=== PATIENT | female | born 2000 | race Native Hawaiian/Other Pacific Islander ===

== ENCOUNTER 2021-12-04 16:39 | Outpatient (CLI) | payer BC, SELFPAY ==
[2021-12-04 23:44] LABS: Chlamydia DNA Amplified* NOT DETECTED (No Detected); GC DNA Amplified* NOT DETECTED (No Detected)
== END 2021-12-04 16:40 | disposition home or self-care (01) ==
PROVIDERS: PCP Physician Assistant Medical; Visit Provider Family Medicine
DX: N89.8 Other specified noninflammatory disorders of vagina (principal); B37.3 Candidiasis of vulva and vagina; Z09 Encounter for follow-up examination after completed treatment for conditions other than malignant neoplasm
CPT/HCPCS: 87491; 87591

== ENCOUNTER 2022-01-13 15:30 | Outpatient (CLI) | payer BC, SELFPAY ==
[2022-01-13 22:55] LABS: Chlamydia DNA Amplified* NOT DETECTED (No Detected); GC DNA Amplified* NOT DETECTED (No Detected)
== END 2022-01-13 15:31 | disposition home or self-care (01) ==
LOC: LKVREF 15:30
PROVIDERS: PCP Physician Assistant Medical; Visit Provider Student in an Organized Health Care Education/Training Program
DX: N89.8 Other specified noninflammatory disorders of vagina (principal)
CPT/HCPCS: 87491; 87591

== ENCOUNTER 2022-02-14 11:17 | Outpatient (CLI) | payer BC, SELFPAY ==
[2022-02-14 15:59] LABS: Chlamydia DNA Amplified* NOT DETECTED (No Detected); GC DNA Amplified* NOT DETECTED (No Detected)
== END 2022-02-14 11:18 | disposition home or self-care (01) ==
LOC: LKVREF 11:17
PROVIDERS: PCP Physician Assistant Medical; Visit Provider Family Medicine
DX: N89.8 Other specified noninflammatory disorders of vagina (principal); Z11.3 Encounter for screening for infections with a predominantly sexual mode of transmission; Z20.2 Contact with and (suspected) exposure to infections with a predominantly sexual mode of transmission
CPT/HCPCS: 87491; 87591

== ENCOUNTER 2022-03-10 18:20 | Outpatient (CLI) | payer BC, SELFPAY ==
[2022-03-10 23:14] LABS: Chlamydia DNA Amplified* NOT DETECTED (No Detected); GC DNA Amplified* NOT DETECTED (No Detected)
== END 2022-03-10 18:21 | disposition home or self-care (01) ==
PROVIDERS: PCP Physician Assistant Medical; Visit Provider Registered Nurse
DX: Z11.3 Encounter for screening for infections with a predominantly sexual mode of transmission (principal); Z20.2 Contact with and (suspected) exposure to infections with a predominantly sexual mode of transmission
CPT/HCPCS: 87491; 87591

== ENCOUNTER 2022-05-12 16:53 | Outpatient (CLI) | payer BC, SELFPAY ==
[2022-05-12 23:28] LABS: Chlamydia DNA Amplified* NOT DETECTED (No Detected); GC DNA Amplified* NOT DETECTED (No Detected)
== END 2022-05-12 16:54 | disposition home or self-care (01) ==
LOC: LKVREF 16:53
PROVIDERS: PCP Physician Assistant Medical; Visit Provider Nurse Practitioner Family
DX: Z11.3 Encounter for screening for infections with a predominantly sexual mode of transmission (principal); Z20.2 Contact with and (suspected) exposure to infections with a predominantly sexual mode of transmission
CPT/HCPCS: 87491; 87591

== ENCOUNTER 2022-06-18 19:43 | Outpatient (CLI) | payer BC, SELFPAY ==
[2022-06-18 23:08] LABS: Chlamydia DNA Amplified* NOT DETECTED (No Detected); GC DNA Amplified* NOT DETECTED (No Detected)
== END 2022-06-18 19:44 | disposition home or self-care (01) ==
LOC: LKVREF 19:43
PROVIDERS: PCP Physician Assistant Medical; Visit Provider Registered Nurse
DX: N89.8 Other specified noninflammatory disorders of vagina (principal)
CPT/HCPCS: 87491; 87591

== ENCOUNTER 2022-07-10 12:43 | Outpatient (CLI) | payer BC, SELFPAY ==
[2022-07-10 22:01] LABS: Albumin* 4.5 g/dL (3.3-5.0)
[2022-07-10 22:02] LABS: Chloride* 105 mmol/L (96-114); Potassium* 4.7 mmol/L (3.6-5.1); Sodium* 139 mmol/L (135-149)
[2022-07-10 22:04] LABS: Bilirubin Total* 0.6 mg/dL (0.1-1.5); Carbon Dioxide* 27 mmol/L (20-32); Cholesterol* 154 mg/dL (90-199); Creatinine* 0.5 mg/dL (0.5-1.5); Estimated Glomerular Filt Rate 137 ml/min
[2022-07-10 22:05] LABS: Alanine Aminotransferase* 19 U/L (4-35); Alkaline Phosphatase* 55 U/L (40-150); Aspartate Amino Transferase* 23 U/L (12-35); Blood Urea Nitrogen* 7 mg/dL (5-24); Calcium* 9.4 mg/dL (8.4-10.6); Glucose* 93 mg/dL (60-115); HDL Cholesterol* 71 mg/dL (>=50); LDL Cholesterol Calculated 72 mg/dL (<100); Total Protein* 7.5 g/dL (6.0-8.3); Triglycerides* 55 mg/dL (40-149)
[2022-07-10 22:52] LABS: Hepatitis C Virus Antibody* Negative (Negative)
[2022-07-10 23:25] LABS: Chlamydia DNA Amplified* NOT DETECTED (No Detected); GC DNA Amplified* NOT DETECTED (No Detected)
[2022-07-12 09:58] LABS: Rapid Plasma Reagin (RPR) Non Reactive (Non Reactive)
== END 2022-07-10 12:44 | disposition home or self-care (01) ==
PROVIDERS: PCP Physician Assistant Medical; Visit Provider Family Medicine
DX: Z00.00 Encounter for general adult medical examination without abnormal findings (principal); Z11.59 Encounter for screening for other viral diseases; Z11.3 Encounter for screening for infections with a predominantly sexual mode of transmission; Z13.6 Encounter for screening for cardiovascular disorders
CPT/HCPCS: 80053; 80061; 86592; 86803; 87491; 87591

== ENCOUNTER 2022-07-29 18:35 | Outpatient (CLI) | payer BC, SELFPAY ==
[2022-07-29 22:29] LABS: GC DNA Amplified* NOT DETECTED (No Detected)
[2022-07-29 22:38] LABS: Chlamydia DNA Amplified* DETECTED (No Detected)
== END 2022-07-29 18:36 | disposition home or self-care (01) ==
LOC: LKVREF 18:35
PROVIDERS: PCP Physician Assistant Medical; Visit Provider Nurse Practitioner Family
DX: Z11.3 Encounter for screening for infections with a predominantly sexual mode of transmission (principal)
CPT/HCPCS: 87491; 87591

== ENCOUNTER 2022-08-27 17:32 | Outpatient (CLI) | payer BC, SELFPAY ==
[2022-08-27 23:02] LABS: Chlamydia DNA Amplified* NOT DETECTED (No Detected); GC DNA Amplified* NOT DETECTED (No Detected)
== END 2022-08-27 17:33 | disposition home or self-care (01) ==
LOC: LKVREF 17:32
PROVIDERS: PCP Physician Assistant Medical; Visit Provider Registered Nurse
DX: N89.8 Other specified noninflammatory disorders of vagina (principal)
CPT/HCPCS: 0353U; 87491; 87591

== ENCOUNTER 2022-12-15 13:16 | Outpatient (CLI) | payer BC, SELFPAY ==
[2022-12-15 21:43] LABS: Chlamydia DNA Amplified* NOT DETECTED (No Detected); GC DNA Amplified* NOT DETECTED (No Detected)
== END 2022-12-15 13:17 | disposition home or self-care (01) ==
PROVIDERS: PCP Physician Assistant Medical; Visit Provider Registered Nurse
DX: N89.8 Other specified noninflammatory disorders of vagina (principal); Z11.3 Encounter for screening for infections with a predominantly sexual mode of transmission; N92.6 Irregular menstruation, unspecified; Z72.51 High risk heterosexual behavior
CPT/HCPCS: 84443; 86592; 86703; 86803; 87340; 87491; 87591

== ENCOUNTER 2023-03-17 17:33 | Outpatient (CLI) | payer BC, SELFPAY | END 2023-03-17 17:34 | disposition home or self-care (01) | PROVIDERS: PCP Physician Assistant Medical; Visit Provider Family Medicine | DX: Z11.3 Encounter for screening for infections with a predominantly sexual mode of transmission (principal) | CPT/HCPCS: 86592; 86703; 87491; 87591 ==

== ENCOUNTER 2023-04-20 19:04 | Outpatient (CLI) | payer BC, SELFPAY | END 2023-04-20 19:05 | disposition home or self-care (01) | LOC: NFLDREF 19:04 | PROVIDERS: PCP Physician Assistant Medical; Visit Provider Registered Nurse | DX: N91.2 Amenorrhea, unspecified (principal) | CPT/HCPCS: 84702 ==

== ENCOUNTER 2023-04-29 15:06 | Outpatient (CLI) | payer BC, SELFPAY ==
[2023-04-29 23:00] LABS: Chlamydia DNA Amplified* NOT DETECTED (No Detected); GC DNA Amplified* NOT DETECTED (No Detected)
== END 2023-04-29 15:07 | disposition home or self-care (01) ==
LOC: LKVREF 15:06
PROVIDERS: PCP Physician Assistant Medical; Visit Provider Nurse Practitioner Family
DX: Z11.3 Encounter for screening for infections with a predominantly sexual mode of transmission (principal)
CPT/HCPCS: 87491; 87591

== ENCOUNTER 2023-05-18 08:48 | Outpatient (CLI) | payer BC, SELFPAY ==
--- NOTE | 2023-05-18 08:45 | CRLHL7_ITS ---
For Patients: As a result of the Century Cures Act, medical imaging exams and procedure reports are released immediately into your electronic medical record. You may view this report before your referring provider. If you have questions, please contact your health care provider. INDICATION: First trimester scan, establish dates. COMPARISON: None. TECHNIQUE: Real-time veloz-scale imaging of the pelvis was performed. FINDINGS: Intrauterine gestational sac, 1.8 cm, 6 weeks 5 days. pole with crown-rump length measuring 9 millimeters, 6 weeks 6 days. Yolk sac measures 4.9 millimeters. No ectopic. Ovaries normal. No subchorionic hemorrhage. No free fluid. IMPRESSION: Nonviable intrauterine pole. Dictated by Jose Vernon MD @ 05/18/2023 10:12:14 AM (Electronically Signed)
--- OUTSIDE RECORDS SUMMARY | 2023-05-18 08:53 | XMS_ITS | Patient Health Record ---
Author Name Unknown Organization [facility] Address [facility] [facility] [address] [facility] [address] [place] [address] Care Team Providers Care Security Professional Name Role Phone EVELIN, ROXANNACECELIA Primary Care Provider Allergies Allergen (clinical drug ingredient) Drug/Non Drug Allergy documented on EMR Reaction Allergy Type Onset Date Status doxycycline Doxycycline hives Drug Allergy Act german Penicillin rash Drug Allergy Active Results Component Value Reference Range Notes CHLAMYDIA/N. GONORRHOEAE RNA , TMA, UROGENITAL ([id number]) Reviewed date:06/04/2022 10:21:42 AM Interpretation: Performing Lab:[facility], [facility], [id number] Mitchell Goodwin Notes/Report: NON-FASTING CHLAMYDIA TRACHOMATIS RNA, TMA, UROGENITAL DETECTED NOT DETECTED If results do not correlate with clinical findings, testing using an alternate molecular target which amplifies different genetic sequences can be performed on the same sample for result confirmation within 7 days of sample receipt or per performing laboratory specimen retention policy. Alternate target testing is available; 18337 (C. trachomatis) [place] [address] (N. gonorrhoeae). NEISSERIA GONORRHOEAE RNA, TMA, UROGENITAL NOT DETECTED NOT DETECTED RPR (DX) W/REFL TITER AND CO NFIRMATORY TESTING ([id number]) Reviewed date:06/04/2022 10:21:42 AM Interpretation: Performing Lab:[facility], [id number] Mitchell Goodwin Notes/Report: NON-FASTING NON-FASTING NON-FASTING NON-FASTING RPR (DX) W/REFL TITER AND CONFIRMATORY TESTING NON-REACTIVE NON-REACTIVE NO COLLECTION DATE RECEIVED. WE HAVE USED THE DATE THE SPECIMEN WAS RECEIVED BY THIS LABORATORY THE COLLECTION DATE. IF THIS IS INCORRECT, PLEASE CONTACT CLIENT SERVICES. PHONE NUMBER: [phone] URINALYSIS, COMPLETE W/REFLE X TO CULTURE ([id number]) Reviewed date:06/04/2022 10:21:42 AM Interpretation: Performing Lab:[facility] [facility] [address], [place] TfcvBC[address] Mitchell Goodwin Notes/Report: NON-FASTING NON-FASTING NON-FASTING NON-FASTING NON-FASTING NON-FASTING NON-FASTING NON-FASTING COLOR YELLOW YELLOW APPEARANCE CLEAR CLEAR SPECIFIC GRAVITY 1.017 1.001-1.035 PH 7.0 5.0-8.0 GLUCOSE NEGATIVE NEGATIVE BILIRUBIN NEGATIVE NEGATIVE KETONES NEGATIVE NEGATIVE OCCULT BLOOD NEGATIVE NEGATIVE PROTEIN NEGATIVE NEGATIVE NITRITE NEGATIVE NEGATIVE LEUKOCYTE ESTERASE NEGATIVE NEGATIVE WBC NONE SEEN < OR = 5 /HPF RBC NONE SEEN < OR = 2 /HPF SQUAMOUS EPITHELIAL CELLS 6-10 < OR = 5 /HPF BACTERIA NONE SEEN NONE SEEN /HPF HYALINE CAST NONE SEEN NONE SEEN /LPF SURESWAB(R) ADVANCED VAGINIT IS, TMA ([id number]) Reviewed date:06/04/2022 10:21:42 AM Interpretation: Performing Lab:[facility], [place] Mitchell Goodwin Notes/Report: NON-FASTING NON-FASTING NON-FASTING NON-FASTING SURESWAB(R) ADV BACTERIAL VAGINOSIS (BV), TMA POSITIVE NEGATIVE LINA SPECIES NOT DETECTED NOT DETECTED LINA GLABRATA NOT DETECTED NOT DETECTED Lina species C. albicans, C. tropicalis, C. parapsilosis, and/or C. dubliniensis can be detected, but not differentiated, in the Lina spp. result. TRICHOMONAS VAGINALIS (TV), TMA NOT DETECTED NOT DETECTED HIV 1/2 ANTIGEN/ANTIBODY,FOU RTH GENERATION W/RFL ([id number]) Reviewed date:06/04/2022 10:21:42 AM Interpretation: Performing Lab:[facility] [address], [facility] CenterMcooWX[address] Mitchell Goodwin Notes/Report: NON-FASTING NON-FASTING NON-FASTING NON-FASTING HIV AG/AB, 4TH GEN NON-REACTIVE NON-REACTIVE HIV-1 antigen and HIV-1/HIV-2 antibodies were not detected. There is no laboratory evidence of HIV infection. PLEASE NOTE: This information has been disclosed to you from records whose confidentiality may be protected by state law. If your state requires such protection, then the state law prohibits you from making any further disclosure of the information without the specific written consent of the person to whom it pertains, or as otherwise permitted by law. A general authorization for the release of medical or other information is NOT sufficient for this purpose. For additional information please refer to http://education.G-cluster.[employer]/faq/CDG332 (This link is being provided for informational/ educational purposes only.) The performance of this assay has not been clinically validated in patients less than 2 years old. Reason For Referral No Information Medications Medication SIG (Take, Route, Frequency, Duration) Notes Start Date End Date Status QUEtiapine Fumarate 25 MG TAKE 1 TABLET (25 MG) BY MOUTH AT BEDTIME NEEDED FOR OTHER (SLEEP). Oral for 90 Days Active Doxycycline Hyclate 100 MG TAKE 1 CAPSUL E BY MOUTH TWICE A DAY X7DAYS Oral for 7 Days Not-Taking Fluconazole 150 MG TAKE 150 MG ORALLY EVERY 3 DAYS FOR 2 DOSES Oral for 3 Days Not-Taking Clindamycin Phosphate 2 % PLEASE SEE ATT ACHED FOR DETAILED DIRECTIONS Vaginal for 7 Days Not-Taking metroNIDAZOLE 500 MG TAKE 1 TABLET BY MOUTH TWICE A DAY FOR 7 DAYS Oral for 7 Days Not-Taking Azithromycin 250 MG TAKE 4 TABLETS BY MOUTH DAILY Oral for 1 Days Not-Taking Ibuprofen 600 MG TAKE 1 TABLET (600 MG) BY MOUTH EVERY 6 HOURS NEEDED. Oral for 7 Days Not-Taking Cyclobenzaprine HCl 10 MG TAKE 1 TABLET (10 MG) BY MOUTH THREE TIMES DAILY NEEDED. Oral for 10 Days Not-Taking Ciprofloxacin HCl 500 MG TAKE 1 TABLET B Y MOUTH TWICE A DAY Oral for 3 Days Not-Taking Social History Tobacco Use: Social History Observation Description Date Details (start date - stop date) Never Smoker NA - NA Household Question Answer Notes Marital status: single Number of adults in household: 2 Number of children in household: 0 Tobacco Use/Smoking Question Answer Notes Tobacco use: nonsmoker Alcohol Screen (Audit-C) Question Answer Notes Did you have a drink contain ing alcohol in the past year? Yes How often did you have a dri nk containing alcohol in the past year? Never (0 point) How many drinks did you have on a typical day when you were drinking in the past year? 1 or 2 drinks (0 point) How often did you have 6 or more drinks on one occasion in the past year? Never (0 point) Points 0 Interpretation Negative Sexual History Question Answer Notes Had sex in the past 12 months (vaginal, oral, or anal)? Yes with Both Men and Women Use protection? No Prevention strategies discussed: Other Have you ever had a Sexually transmitted disease ? Yes Chlamydia? Yes Syphilis? No Herpes? No Other? 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 confirmed Problem Vitamin D deficiency (34256516) Vitamin D deficiency (E55.9) Active confirmed Problem Vitamin D deficiency (68168083) Vitamin D insufficiency (E55.9) Active confirmed Problem Generalized anxiety disorder (49894546) FANNY (generalized anxiety disorder) (F41.1) Active confirmed Problem History of alcohol abuse (828115931) History of alcohol abuse (F10.11) Active confirmed Problem Suicidal ideation (8487027) Suicidal ideation (R45.851) Active confirmed Problem Abuse of antidepressant drug (573246049) Substance use disorder (F19.90) Active confirmed Problem Cannabis dependence (13906913) Cannabis use disorder, moderate, dependence (F12.20) Active confirmed Problem Alcohol abuse (73481908) Alcohol use disorder, mild, abuse (F10.10) Active confirmed Problem Ferritin level low (148965093) Low ferritin (R79.0) Active confirmed Problem Adjustment disorder (38331936) 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) Active confirmed Problem Parent-child problem (43335070) Parent-child relational problem (Z62.820) Active confirmed Problem Severe recurrent major depression without psychotic features (47703804) Major depressive disorder, recurrent, 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) Active confirmed Problem Recurrent major depression (74556111) Episode of recurrent major depressive disorder (F33.9) Active confirmed Problem Cannabis abuse (92568374) Cannabis use disorder, mild, abuse (F12.10) Active confirmed Problem Avoidant restrictive food intake disorder (disorder) (098796975) 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) Active confirmed Vital Signs Heart Rate 92 /min 06/01/2022 Temperature 99.5 degrees Fahrenheit 06/01/2022 Respiratory Rate 16 /min 06/01/2022 Height-cm 169.5 cm 06/01/2022 Oximetry 99 % 06/01/2022 Blood pressure diastolic 68 mm Hg 06/01/2022 Weight-kg 55.97 kg 06/01/2022 Height 66.73 in 06/01/2022 Blood pressure systolic 101 mm Hg 06/01/2022 Weight 123.4 lbs 06/01/2022 BMI 19.48 kg/m2 06/01/2022 Encounters Encounter Location Date Provider Diagnosis [facility] [address] [place] [address] 06/01/2022 [place] [facility] STI (sexually transmitted infection) A64 ; Vaginal candidiasis B37.31 ; Dysuria R30.0 ; Screening for HIV (human immunodeficiency virus) Z11.4 and Acute vaginitis N76.[address] [address] 06/04/2022 [place] [facility] Assessments Encounter Date Diagnosis (ICD Code) Assessment Notes Treat ment Notes Treatment Clinical Notes 06/01/2022 STI (sexually transmitted infection) (ICD-10 - A64) 06/01/2022 Vaginal candidiasis (ICD-10 - B37.31) Vaginal Yeast Infection: Care Instructions material was printed, Bacterial Vaginosis: Care Instructions material was printed 06/01/2022 Dysuria (ICD-10 - R30.0) Painful Urination (Dysuria): Care Instructions material was printed 06/01/2022 Screening for HIV (human immunodeficiency virus) (ICD-10 - Z11.4) HIV Testing: Care Instructions material was printed 06/01/2022 Acute vaginitis (ICD-10 - N76.0) Vaginitis: Care Instructions material was printed Plan Of Treatment No Information Insurance Providers Payer Name Payer Address Payer Phone Subscriber Number Group Number Insured Name Patient Relationship to Insured Coverage Start Date Coverage End Date [facility] [address] [address] [place], [place] [id number] [phone] [id number] Jessie Bolden Self - patient is the insured Medical (General) History Medical History History ICD Code Generalized anxiety disorder F41.1 Borderline personality disorder F60.3 Trichotillomania F63.3 Vitamin D deficiency E55.9 FANNY (generalized anxiety disorder) F41.1 History of alcohol abuse F10.11 Suicidal ideation R45.851 Substance use disorder F19.90 Low ferritin R79.0 Alcohol use disorder, mild, abuse F10.10 Cannabis use disorder, moderate, depende nce F12.20 Trauma and stressor-related disorder F43 .9 Parent-child relational problem Z62.820
== END 2023-05-18 08:49 | disposition home or self-care (01) ==
LOC: US 08:49
PROVIDERS: PCP Physician Assistant Medical; Visit Provider Advanced Practice Midwife
DX: Z34.91 Encounter for supervision of normal pregnancy, unspecified, first trimester (principal); Z3A.11 11 weeks gestation of pregnancy
CPT/HCPCS: 76817; 84702; 86850; 86900; 86901

== ENCOUNTER 2023-05-20 09:44 | Outpatient (CLI) | payer BC, SELFPAY ==
--- OUTSIDE RECORDS SUMMARY | 2023-05-26 11:56 | XMS_ITS | Encounter Summary ---
Author Name Unknown Organization [facility] Address [address] [place] [address] Care Team Providers Care Nib Adjuster Name Role Phone Jessica Chicas PA-C Primary Care Provider [phone] Reason for Visit * Reason Comments INFECTION, VAGINAL Medication Questions Encounter Details Date Type Department Care Team Description 05/08/2023 Nurse Triage Careline [address] [place], [place] [phone] Unknown, Physician [address] [place] [address] INFECTION, VAGINAL; Medication Questions Social History Tobacco Use Types Packs/Day Years Used Date Smoking Tobacco: Light Smoker Smokeless Tobacco: Never Alcohol Use Standard Drinks/Week Comments Not Currently 0 (1 standard drink = 0.6 oz pur e alcohol) hx of use AUDIT-C Answer Date Recorded Frequency of Alcohol Consumption Never 04/26/2019 Average Number of Drinks Not on file 019 Frequency of Binge Drinking Not on file 04/16 Sex and Gender Information Value Date Recorded Sex Assigned at Not on file Gender Identity Not on file Sexual Orientation Not on file documented as of this encounter Nursing Notes * Li Gutiérrez RN - 05/08/2023 5:34 PM CST Verified patient identity using three identifiers: Yes with patient Situation/Background (brief explanation of current symptoms/situation): Patient states, I get chronic BV, so I have my provider give me medication whenever I need it. States, I know what it is by the smell I am currently 6 weeks , wondering if I should take clindamycin or gel [place]: No obstetric history on file. Gestational Age (by PETTY or LMP): Unknown Patient blood type: No results found for requested labs within last 300 days. Reason for Disposition [1] Caller has NON-URGENT medicine question about med that PCP prescribed AND [2] triager unable toanswer question Protocols used: Medication Question [id number] Plan: Call PCP when office is open. Recommended pt go to urgent care tomorrow or follow up with prescribing provider to see what medications are safe to take in and if she should be coming in for inperson evaluation.. Patient/caller agrees with plan. Patient/caller verbalizes understanding and has no further questions at this time. Advised patient/caller to call back CareLine if there are further questions or concerns. The CareLine is available 07/12. Li Miller RN Careline 5:43 PM 05/08/2023 ATION MANAGER * Danette Bonilla - 05/08/2023 4:27 PM CST Verified patient identity using three identifiers: Yes Caller's relationship to patient: Self, Do you have a provider/clinic where you are seen for this? Other [facility] Symptoms Describe the reason for call/symptoms (include location and duration if applicable): Pt states that she's six weeks and has vaginal bacterial. Pt asked if she can take this med: clindamycin while she's Plan:The current callback time to speak with a nurse is 1 hr. If your symptoms change or worsen, orif you have not received a call back in the stated timeframe, please call us back ATION MANAGER documented in this encounter Plan of Treatment Upcoming Encounters Date Type Department Care Team Description 05/28/2023 7:30 AM PROBATION MANAGER [facility]ointment [facility] [address] [facility] [place] [address] Daniela Greenwood, RUSSELL, CNM [address] [place] [address] 06/23/2023 11:15 AM PROBATION MANAGER Appointment [facility]-MARKETING GRAPHICS SPECIALIST [address], [address] [place] [address] [place] [address] [place] [address] documented as of this encounter Visit Diagnoses Not on filedocumented in this encounter Care Teams Nib Adjuster Relationship Specialty Start Date End Date Jessica Chicas, PAMaryC [address] [place] [address] PCP - General Physician Small Lot Operator 04/27/19 documented as of this encounter
--- OUTSIDE RECORDS SUMMARY | 2023-05-26 11:56 | XMS_ITS | Clinical Summary ---
Author Name Unknown Organization [facility] Address [address] [place] [address] Care Team Providers Care Rail Operator Name Role Phone Jessica Chicas PA-C Primary Care Provider [phone] Source Comments You are receiving this document as you are listed as the primary care provider,follow-up provider, or the patient has been referred to you for consultation.This is in compliance with the Medicare andMedicaid EHR Incentive Program,which states Providers who transition their patient to another setting of careor provider of care or refers their patient to another provider of care shouldprovide summary care record for each transition of care or referral. [facility] Allergies Active Allergy Reactions Criticality Noted Date Comments Amoxicillin Rash 04/26/2019 Doxycycline Hives High 04/15/2022 Medications Medication Sig Dispensed Refills Start Date End Date Status levonorgestrel (MIRENA) 20 MCG/24HR IUD 1 Each by Intrauterine route once. 0 Active QUEtiapine (SEROQUEL) 25 MG tablet Take 2 Tablets (50 mg) by mouth at bedtime as needed for Other (sleep). 60 Tablet 0 05/09/2022 Active cholecalciferol 25 MCG TABS Take 2 Tablets (2,000 Units) by mouth daily. Do not start before May 10, 2022. 100 Tablet 3 05/10/2022 Active hydrOXYzine HCl (ATARAX) 10 MG tablet Take 1-2 Tablets (10-20 mg) by mouth 4 times daily as needed for Anxiety. 90 Tablet 0 05/09/2022 Active Active Problems Problem Noted Date Diagnosed Date Episode of recurrent major depressive disorder 0 05/23/2020 Vitamin D insufficiency 05/17/2020 Borderline personality disorder 07/14/2019 Avoidant-restrictive food intake disorder (ARFID ) 05/01/2019 FANNY (generalized anxiety disorder) 05/01/2019 Other specified depressive episodes 05/01/2019 Cannabis use disorder, mild, abuse 05/01/2019 History of alcohol abuse 05/01/2019 Resolved Problems Problem Noted Date Diagnosed Date Resolved Date Abnormal TSH 05/24/2020 06/17/2020 Hypokalemia 05/09/2019 05/24/2020 Underweight 05/01/2019 06/17/2020 Encounters Date Type Department Care Team Description 05/08/2023 Nurse Triage Careline [address] [facility] [place] [address] Unknown, Physician INFECTION, VAGINAL; Medication Questions from Last 3 Months Immunizations Name Administration Dates Next Due 4vHPV (Gardasil) 06/18/2014,02/14/2014, 4 DTP 08/22/2008, 5,11/29/2003,09/25,07/23/2003 DTaP 06/29/2006, 5,04/13/2003,11/24,2001,2001,2001 Flu Vac (3+ yrs) 03/13/2010 [id number] 07/29/2009 HPV, Unspecified Formulation 12/14/2013 HepA Ped/Adol (1-18 yrs) 06/18/2014,12/14/2013 HepA, Unspecified Formulation 12/14/2013 HepB Ped/Adol (0-18 yrs) 06/29/2006,2001,1 06/05/2000 HepB, Unspecified Formulation 11/29/2003, 004,05/23/2003 Hib (ActHIB) 04/06/2002,2001 Hib, Unspecified Formulation 04/06/2002,08/02/19 02,2001 Hib/HBV 2001 IPV (Polio) 04/14/2005, 3,2001,08/01,2001 Influenza IIV4 (Quadrivalent ) 0.5mL (19534) 04/29/2022(Deferred: Patient Refused - patient declines flu vaccination at this time),07/14/2016,04/12/2015 MCV4 (Menactra) 12/23/2018 MCV4 Menveo 2m.+ (two vial) 12/14/2013 MMR 08/22/2008, 7,04/14/2005,09/01,04/06/2002 Meningococcal MCV4, Unspecif ied Formulation 12/14/2013 Moderna Monovalent 12+ 12/20/2020,11/19/2020 PCV13 (Prevnar) 11/24/2002, 2,2001,06/20 Pneumococcal 7, PED 11/24/2002, 2,2001,06/20 Polio, Unspecified Formulation 9,11/29/2003,09/26/2003,07/22 Td (7+ yrs) 12/14/2013 Tdap 12/14/2013 Varicella 08/22/2008,06/18/2004,04/06/2002 Social History Tobacco Use Types Packs/Day Years [...] on file Sexual Orientation Not on file Last Filed Vital Signs Vital Sign Reading Time Taken Comments Blood Pressure 131/80 05/09/2022 6:04 AM SENIOR MARKETING DATA ANALYST Pulse 96 05/09/2022 6:04 AM SENIOR MARKETING DATA ANALYST Temperature 36.7 ??C (98.1 ??F) 05/09/2022 6:00 AM CS T Respiratory Rate 16 05/06/2019 6:00 PM SENIOR MARKETING DATA ANALYST Oxygen Saturation 99% 05/06/2019 6:00 PM SENIOR MARKETING DATA ANALYST Inhaled Oxygen Concentration - - Weight 55 kg (121 lb 4.1 oz) 05/09/2022 5:00 AM SENIOR MARKETING DATA ANALYST Height 169.2 cm (5' 6.61) 04/16/2022 6:00 AM CS T Body Mass Index 19.21 04/16/2022 6:00 AM SENIOR MARKETING DATA ANALYST Plan of Treatment Upcoming Encounters Date Type Department Care Team Description 05/28/2023 7:30 AM SENIOR MARKETING DATA ANALYST [facility]ment [facility] [address] [facility] [place] [address] Daniela Greenwood APRN, CNM [address] [place], [place] [phone] 06/23/2023 11:15 AM SENIOR MARKETING DATA ANALYST Appointment [facility]HAND BENDER [address] [facility], [address] [place] [address] [place] [address] [place], [place] [phone] Health Maintenance Due Date Last Done Comments Cervical Cancer Screening Due 2001 Chlamydia 2001 Hep C Screening (Preventive Services) 2001 Pneumococcal (1 - PPSV23 or PCV20) 11/25/2003 11/24/2002, 11/24/2002, 2001, Additional history exists HIV Screening (Preventive Services) 2017 Adult Preventive Visit 2019 COVID-19 Vaccine (3 2022- 4 season) 2023 12/20/2020, 11/19/2020 Influenza (#1) 2023 07/14/2016, 03/18, 03/13/2010 DTaP/Tdap/Td (8 - Tdap) 12/15/2023 12/15/19 14, 12/14/2013, 08/22/2008, Additional history exists Zoster/Shingles (1 of 2) 2051 Hib Completed 04/06/2002, 03/18, 2001, Additional history exists HepB Completed 06/29/2006, 11/14, 07/23/2003, Additional history exists IPV (Polio) Completed 08/22/2008, 03/18, 11/29/2003, Additional history exists Varicella Completed 08/22/2008, 06/2004, 04/06/2002 HPV Vaccine Completed 06/18/2014, 05/2013, 12/14/2013, Additional history exists HepA Completed 06/18/2014, 11/16, 12/14/2013 MCV4 Completed 12/23/2018, 11/16, 12/14/2013 Advance Directives Latest Code Status on File Code Status Date Activated Date Inactivated Comments Full Code 04/29/2022 4:03 PM 05/09/2022 1:07 PM Code Status History Code Status Date Activated Date Inactivated Comments Full Code 04/15/2022 1:45 PM 04/29/2022 1:11 PM Full Code 05/23/2020 1:01 PM 06/20/2020 1:11 PM Full Code 05/02/2019 3:54 PM 05/21/2019 1:12 PM Full Code 05/02/2019 11:49 AM 05/02/2019 3:53 PM Care Teams Rail Operator Relationship Specialty Start Date End Date Jessica Chicas PA-C [address] [place] [address] PCP - General Physician Reference Investigator 04/27/19
--- OUTSIDE RECORDS SUMMARY | 2023-05-26 11:56 | XMS_ITS | Encounter Summary ---
Author Name Unknown Organization [facility] Address [address] [place] [address] Care Team Providers Care Electrical Superintendent Name Role Phone Jessica Chicas PA-C Primary Care Provider [phone] Encounter Details Date Type Department Care Team Description 05/03/2019 Lab Requisition [facility] [address] [place], [place] [address] Sunshine Schmidt PA-C [address] [place] [address] Anorexia nervosa, restricting type Discharge Disposition: Home Social History Tobacco Use Types Packs/Day Years [...] on file documented as of this encounter Plan of Treatment Upcoming Encounters Date Type Department Care Team Description 05/28/2023 7:30 AM CHILDBIRTH AND INFANT CARE TEACHER [facility]ment [facility] [address] [place], [place] [address] Daniela Greenwood APRN, CNM [address] [place], [place] [address] 06/23/2023 11:15 AM CHILDBIRTH AND INFANT CARE TEACHER Appointment [facility]-PACKING AND WRAPPING SUPERVISOR [address] [facility], [address] [place] [address] [place] [address] [place], [place] [phone] documented as of this encounter Procedures Procedure Name Priority Date/Time Associated Diagnosis Comments BASIC METABOLIC PANEL Routine 05/03/2019 6:20 AM CHILDBIRTH AND INFANT CARE TEACHER Anorexia nervosa, restricting type documented in this encounter Results * (ABNORMAL) Basic Metabolic Panel (05/03/2019 6:20 AM CHILDBIRTH AND INFANT CARE TEACHER) Sodium 138 136 - 145 mmol/L 05/03/2019 7:53 AM CHILDBIRTH AND INFANT CARE TEACHER [facility] Potassium 4.1 3.5 - 5.1 mmol/L 05/03/2019 7:53 AM CHILDBIRTH AND INFANT CARE TEACHER [facility] Chloride 103 98 - 109 mmol/L 05/03/2019 7:53 AM CHILDBIRTH AND INFANT CARE TEACHER [facility] CO2 29 20 - 29 mmol/L 05/03/2019 7:53 AM CHILDBIRTH AND INFANT CARE TEACHER [facility] Anion Gap 6(L) 7 - 16 mmol/L 05/03/2019 7:53 AM CHILDBIRTH AND INFANT CARE TEACHER [facility] Calcium 9.5 8.4 - 10.4 mg/dL 05/03/2019 7:53 AM CHILDBIRTH AND INFANT CARE TEACHER [facility] BUN 9 7 - 26 mg/dL 05/03/2019 7:53 AM CHILDBIRTH AND INFANT CARE TEACHER [facility] Creatinine 0.59 0.55 - 1.02 mg/dL 05/03/2019 7:53 AM CHILDBIRTH AND INFANT CARE TEACHER [facility] GFR, Estimated >60 >60 mL/min/1.7 3m2 05/03/2019 7:53 AM CHILDBIRTH AND INFANT CARE TEACHER [facility] GFR, Est If >60 >60 mL/min/1.7 3m2 05/03/2019 7:53 AM CHILDBIRTH AND INFANT CARE TEACHER [facility] Glucose 78 70 - 100 mg/dL 05/03/2019 7:53 AM CHILDBIRTH AND INFANT CARE TEACHER [facility] Comment:The given reference range is for the fasting state. Non-fasting reference range for glucose is 70 - 180 mg/dL. Hours Fasting Unknown 05/03/2019 7:53 AM CHILDBIRTH AND INFANT CARE TEACHER [facility] Blood Venipuncture / Unknown 05/03/2019 6:20 AM CHILDBIRTH AND INFANT CARE TEACHER 05/03/2019 7:41 AM CHILDBIRTH AND INFANT CARE TEACHER Sunshine Schmidt PA-C LAB_1 [facility] [address] documented in this encounter Visit Diagnoses Diagnosis Anorexia nervosa, restricting type Anorexia nervosa documented in this encounter Care Teams Electrical Superintendent Relationship Specialty Start Date End Date Jessica Chicas PA-C [address] [place] [address] PCP - General Physician Mill Machinist 04/27/19 documented as of this encounter
--- OUTSIDE RECORDS SUMMARY | 2023-05-26 11:56 | XMS_ITS | Clinical Summary ---
Author Name Unknown Organization [facility] Address [place], [place] [address] Care Team Providers Care Snipper Name Role Phone Jose Barr MD Unavailable [facility] Primary Care Provider Allergies Active Allergy Reactions Criticality Noted Date Comments Amoxicillin Rash 08/01/2009 Doxycycline Rash 02/17/2023 Penicillins 08/01/2009 Penicillins Rash 01/27/2011 Medications Medication Sig Dispensed Refills Start Date End Date Status levonorgestrel intrauterine device (MIRENA) 20 mcg/24 hours (5 yrs) 52 mg IUD Inject 1 Each intrauterine. 0 Active Active Problems Problem Noted Date Diagnosed Date Borderline personality disorder 07/14/2019 Cannabis use disorder, mild, abuse 05/01/2019 Alcohol use disorder, mild, abuse 08/12/2017 Generalized anxiety disorder 08/11/2017 Comments Yes Encounters Date Type Department Care Team Description 05/19/2023 1:05 PM CLINICAL TRIAL EDUCATOR - 05/19/2023 4:00 PM CLINICAL TRIAL EDUCATOR Emergency [address] [address] Joe Marques MD Threatened miscarriage in early (Primary Dx) Discharge Disposition: Home Self Care 05/19/2023 Travel from Last 3 Months Immunizations Name Administration Dates Next Due DTaP 06/29/2006, 3,2001,2001,2001 Hepatitis B (Peds) 06/29/2006,2001, 001 Hib Conjugate, Unspecified 04/06/2002,2001 ,2001 Inactivated Polio Vaccine 11/24/2002,,2001,2001 MMR 06/29/2006,04/06/2002 Pneumococcal conj 13-Valent (Prevnar 13) 11/24/2002,2001,2001,2001 Tdap 02/17/2023 Varicella Vaccine 08/22/2008,04/06/2002 Social History Tobacco Use Types Packs/Day Years Used Date Smoking Tobacco: Never Smokeless Tobacco: Never Alcohol Use Standard Drinks/Week Comments Yes 0 (1 standard drink = 0.6 oz pur e alcohol) PHQ-2 Answer Date Recorded PHQ-2 TOTAL SCORE 1 01/23/2020 Social Connections Answer Date Recorded Frequency of Communication with Friends and Fami ly Not on file 05/09/2021 Financial Resource Strain Answer Date R ecorded Difficulty of Paying Living Expenses Not on file 05/09/2021 Difficulty of Paying Living Expenses Not on file 05/09/2021 Comments Yes Sex and Gender Information Value Date Recorded Sex Assigned at Not on file Gender Identity Not on file Sexual Orientation Not on file Obstetrics History Para Term AB IAB SAB Ectopic Multiple Livin g Live Births 1 Date Outcome GA Total Labor Labor/2nd/3rd Weight Sex Delivery Anes PTL Nora A1 A5 Name Cl in Current Last Filed Vital Signs Vital Sign Reading Time Taken Comments Blood Pressure 102/57 05/19/2023 2:45 PM CLINICAL TRIAL EDUCATOR Pulse 91 05/19/2023 2:45 PM CLINICAL TRIAL EDUCATOR Temperature 36.7 ??C (98 ??F) 05/19/2023 12:25 PM CLINICAL TRIAL EDUCATOR Respiratory Rate 16 05/19/2023 2:45 PM CLINICAL TRIAL EDUCATOR Oxygen Saturation 99% 05/19/2023 2:45 PM CLINICAL TRIAL EDUCATOR Inhaled Oxygen Concentration - - Weight 55.3 kg (122 lb) 05/19/2023 12:25 PM CLINICAL TRIAL EDUCATOR Height 170.2 cm (5' 7) 05/19/2023 12:25 PM CLINICAL TRIAL EDUCATOR Body Mass Index 19.11 05/19/2023 12:25 PM CLINICAL TRIAL EDUCATOR Plan of Treatment Health Maintenance Due Date Last Done Comments HPV series for age 9-26 (1 - 2-dose series) 2012 Hepatitis C screening for ag e 18-79 2019 BMI (ht and wt on same day) for age 18+ 01/22/2021 01/23/2020 Depression screening for age 12+ 01/22/2021 01/23/20 20 Chlamydia for age 16-24 08/09/2021 08/10/19 21, 07/17/2020, 06/24/2020, Additional history exists COVID-19 vaccine series (2022- season) 2023 12/20/2020, 11/19/2020 Influenza for age 9-49 01/15/2023 Pap test for age 21-65 07/10/2025 3, 08/09/2020, 08/09/2020 Tetanus booster 02/17/2033 02/17/2023 Pneumococcal series for age 6-64 Completed 11/24/2002, 2001, 2001, Additional history exists HIV for age 15-65 Completed 01/23/2020 Tdap Completed 02/17/2023 Procedures Procedure Name Priority Date/Time Associated Diagnosis Comments US OB 1ST TRI SINGLE TA STAT 05/19/2023 3:07 PM CLINICAL TRIAL EDUCATOR RH(D) TYPE STAT 05/19/2023 2:20 PM CLINICAL TRIAL EDUCATOR HCG BETA QUANT, STAT 05/19/2023 1:44 PM CLINICAL TRIAL EDUCATOR URINE STAT 05/19/2023 1:44 PM CLINICAL TRIAL EDUCATOR UA W/ SEDIMENT EXAM REFLEXED PER CRITERIA STAT 05/19/2023 1:44 PM CLINICAL TRIAL EDUCATOR from Last 3 Months Results * US OB 1ST TRI SINGLE TA (05/19/2023 3:07 PM CLINICAL TRIAL EDUCATOR) Anatomical Region Laterality Modality , 1ST TRIMESTER Ultrasound 05/19/2023 3:14 PM CLINICAL TRIAL EDUCATOR Impressions 05/19/2023 3:14 PM CLINICAL TRIAL EDUCATOR Single intrauterine gestation with crown-rump length of 6 mm and no cardiac activity. Findings are suspicious for, but not diagnostic of failure. Recommend repeat ultrasound in 7-10 days for further evaluation as lack of heartbeat at that time would be diagnostic of failure. Mina Barrow, Veronika Guerrero, Jama Puckett Blaivas, Michael. Diagnostic Criteria for Nonviable Early in the First Trimester. (2013) The [employer] journal of medicine. 369 (95): 3223-81. doi:[id number] Dictated by Shadia Pantoja MD @ 05/19/2023 3:14:14 PM (Electronically Signed) Narrative 05/19/2023 3:14 PM CLINICAL TRIAL EDUCATOR For Patients: ??As a result of the Century Cures Act, medical imaging exams and procedure reports are released immediately into your electronic medical record. ??You may view this report before your referring provider. ??If you have questions, please contact your health care provider. INDICATION: Abnormal uterine bleeding. TECHNIQUE: Ultrasound OB pelvis transabdominal. ??Real-time barr-scale imaging of the pelvis was performed. COMPARISON: None available. FINDINGS: Intrauterine gestational sac: Present with mean gestational sac diameter of 19 mm. Embryo present: Yes. Embryo cardiac activity: Not visualized. [place] rump Length: 6 mm. Sonographic gestational age: 6 weeks 3 days. Sonographic estimated due date: 01/09/2024. Yolk sac: Normal. Perigestational hemorrhage: None. Ovaries and adnexae: Unremarkable. ??No suspicious lesions or fluid collections. Procedure Note hSadia Pantoja, - 05/19/2023 For Patients: As a result of the Cures Act, medical imagingexams and procedure reports are released immediately into your electronicmedical record. You may view this report before your referring provider.If you have questions, please contact your health care provider. INDICATION: Abnormal uterine bleeding. TECHNIQUE: Ultrasound OB pelvis transabdominal. Real-time barr-scale imaging of thepelvis was performed. COMPARISON: None available. FINDINGS: Intrauterine gestational sac: Present with mean gestational sac diameterof 19 mm. Embryo present: Yes. Embryo cardiac activity: Not visualized. [place] rump Length: 6 mm. Sonographic gestational age: 6 weeks 3 days. Sonographic estimated due date: 01/09/2024. Yolk sac: Normal. Perigestational hemorrhage: None. Ovaries and adnexae: Unremarkable. No suspicious lesions or fluidcollections. IMPRESSION: Single intrauterine gestation with crown-rump length of 6 mm and no fetalcardiac activity. Findings are suspicious for, but not diagnostic ofpregnancy failure. Recommend repeat ultrasound in 7-10 days for furtherevaluation as lack of heartbeat at that time would be diagnostic ofpregnancy failure. Mina Barrow, Veronika Guerrero, Jama Puckett Blaivas, Michael.Diagnostic Criteria for Nonviable Early in the First Trimester.(2013) The [employer] journal of medicine. 369 (28): 1443-51.doi:[id number] Dictated by Shadia Pantoja MD @ 05/19/2023 3:14:14 PM (Electronically Signed) Joe Marques MD US * RH(D) TYPE (05/19/2023 2:20 PM CLINICAL TRIAL EDUCATOR) RH(D) TYPE Positive 05/19/2023 2:42 PM CLINICAL TRIAL EDUCATOR [facility] B[facility]OD [facility] Blood BLOOD SPECIMEN / Unknown Venipuncture / Unknown 05/19/2023 2:20 PM CLINICAL TRIAL EDUCATOR 05/19/2023 2:25 PM CLINICAL TRIAL EDUCATOR Joe Marques MD BLOOD BANK [facility] [address] [place] [address] * HCG BETA QUANT, (05/19/2023 1:44 PM CLINICAL TRIAL EDUCATOR) HCG BETA QUANT,PREGNANC Y 25,052 mIU/mL 05/19/2023 4:30 PM CLINICAL TRIAL EDUCATOR [facility] Blood BLOOD SPECIMEN / Unknown Non-Lab Venipuncture / Unknown 05/19/2023 1:44 PM CLINICAL TRIAL EDUCATOR 05/19/2023 1:54 PM CLINICAL TRIAL EDUCATOR Narrative [facility] - 05/19/2023 4:30 PM CLINICAL TRIAL EDUCATOR Expected Value for Healthy Non- premenopausal women <5.3mIU/mL FOR GESTATIONAL ASSESSMENT-See Range Table Below Weeks of gestation hCG mIU/mL 3 weeks gestation (5.8 - 71.2) 4 weeks gestation (9.5 - 750) 5 weeks gestation (217 - 7138) 6 weeks gestation (158 - 31,795) 7 weeks gestation (3,697 - 163,563) 8 weeks gestation (32,065 - 149,571) 9 weeks gestation (63,803 - 151,410) 10 weeks gestation (46,509 - 186,977) 12 weeks gestation (27,832 - 210,612) 14 weeks gestation (13,950 - 62,530) 15 weeks gestation (12,039 - 70,971) 16 weeks gestation (9,040 - 56,451) 17 weeks gestation (8,175 - 55,868) 18 weeks gestation (8,099 - 58,176) Biotin supplements may cause clinically significant interference for this test assay. ??If interference is suspected, it is strongly recommended that biotin is discontinued for at least one week prior to retesting. Joe Marques MD CHEMISTRY [address] [address] * (ABNORMAL) UA W/ SEDIMENT EXAM REFLEXED PER CRITERIA (05/19/2023 1:44 PM CLINICAL TRIAL EDUCATOR) COLOR Yellow Yellow Color 05/19/2023 1:57 PM CLINICAL TRIAL EDUCATOR [facility] CLARITY Clear Clear Clarity 05/19/2023 1:57 PM CLINICAL TRIAL EDUCATOR [facility] SPECIFIC GRAVITY,URINE >=1.030(A) 1.010, 1.015, 1.020, 1.025 05/19/2023 1:57 PM CLINICAL TRIAL EDUCATOR [facility] PH,URINE 6.0 6.0, 7.0, 8.0, 5.5, 6.5, 7.5, 8.5 05/19/2023 1:57 PM [facility] UROBILINOGEN, QUALITATIVE Normal Normal EU/dl 05/19/2023 1:57 PM [facility] PROTEIN, URINE Negative Negative mg/dL 05/19/2023 1:57 PM CLINICAL TRIAL EDUCATOR [facility] GLUCOSE, URINE Negative Negative mg/dL 05/19/2023 1:57 PM [facility] KETONES,URINE 15(A) Negative mg/dL 05/19/2023 1:57 PM CLINICAL TRIAL EDUCATOR [facility] BILIRUBIN,URI NE Negative Negative 05/19/2023 1:57 PM CLINICAL TRIAL EDUCATOR [facility] OCCULT BLOOD,URINE Negative Negative 05/19/2023 1:57 PM CLINICAL TRIAL EDUCATOR [facility] NITRITE Negative Negative 05/19/2023 1:57 PM CLINICAL TRIAL EDUCATOR [facility] LEUKOCYTE ESTERASE Negative Negative 05/19/2023 1:57 PM CLINICAL TRIAL EDUCATOR [facility] Urine URINE SPECIMEN / Unknown Non-Blood / Unknown 05/19/2023 1:44 PM CLINICAL TRIAL EDUCATOR 05/19/2023 1:54 PM CLINICAL TRIAL EDUCATOR Joe Maruqes MD URINE Performing Organization Address City/[facility]/ZIP Co de Phone Number [address] [address] * (ABNORMAL) URINE (05/19/2023 1:44 PM CLINICAL TRIAL EDUCATOR) ,URIN E Positive(P ositive) Negative 05/19/2023 1:59 PM CLINICAL TRIAL EDUCATOR [facility] Comment:Is Rh typing necessa ry? Urine URINE SPECIMEN / Unknown Non-Blood / Unknown 05/19/2023 1:44 PM CLINICAL TRIAL EDUCATOR 05/19/2023 1:54 PM CLINICAL TRIAL EDUCATOR Joe Marques MD URINE Performing Organization Address City/[facility] Co de Phone Number [address] [address] from Last 3 Months Care Teams Snipper Relationship Specialty Start Date End Date [address] [address] [facility] - General 01/15/16 Jose Barr MD 07/18/09
--- OUTSIDE RECORDS SUMMARY | 2023-05-26 11:56 | XMS_ITS | Encounter Summary ---
Author Name Unknown Organization [facility] Address [address] [place] [address] Care Team Providers Care Nylon Winder Name Role Phone Juan Francisco Sergiozofia Rebel FINCH Primary Care Provider [phone] Encounter Details Date Type Department Care Team Description 05/05/2019 Lab Requisition [facility] [address] [place], [place] [id number] Patricia Olson MD [address] [place] [phone] Avoidant/restrictive food intake disorder Discharge Disposition: Home Social History Tobacco Use [...] Department Care Team Description 05/28/2023 7:30 AM COMPLIANCE FIELD TECHNICIAN [facility]ointment [facility] [address] [place] [address] Daniela Greenwood, LINE ERECTOR, CNM [address] [place], [place] [phone] 06/23/2023 11:15 AM COMPLIANCE FIELD TECHNICIAN Appointment [facility]-LIBRARY MEDIA ASSISTANT [address] [facility], [address] [place] [address] [place] [address] [place], [place] [address] documented as of this encounter Procedures Procedure Name Priority Date/Time Associated Diagnosis Comments COMPREHENSIVE METABOLIC PANEL Routine 05/05/2019 6:38 AM COMPLIANCE FIELD TECHNICIAN Avoidant/restricti ve food intake disorder MAGNESIUM Routine 05/05/2019 6:38 AM COMPLIANCE FIELD TECHNICIAN Avoidant/restricti ve food intake disorder PHOSPHORUS Routine 05/05/2019 6:38 AM COMPLIANCE FIELD TECHNICIAN Avoidant/restricti ve food intake disorder documented in this encounter Results * Phosphorus (05/05/2019 6:38 AM COMPLIANCE FIELD TECHNICIAN) Phosphorus 4.4 2.3 - 4.7 mg/dL 05/05/2019 3:04 PM COMPLIANCE FIELD TECHNICIAN [facility] Blood Venipuncture / Unknown 05/05/2019 6:38 AM COMPLIANCE FIELD TECHNICIAN 05/05/2019 2:31 PM COMPLIANCE FIELD TECHNICIAN Patricia Olson MD LAB_1 Performing Organization Address City/[facility]/ZIP Co de Phone Number [facility] [address] * Magnesium (05/05/2019 6:38 AM COMPLIANCE FIELD TECHNICIAN) Magnesium 1.8 1.6 - 2.6 mg/dL 05/05/2019 3:04 PM COMPLIANCE FIELD TECHNICIAN [facility] Blood Venipuncture / Unknown 05/05/2019 6:38 AM COMPLIANCE FIELD TECHNICIAN 05/05/2019 2:31 PM COMPLIANCE FIELD TECHNICIAN Patricia Olson MD LAB_1 Performing Organization Address City/[facility] Co de Phone Number [facility] [address] [place] [phone] * Comp Metabolic Panel (05/05/2019 6:38 AM COMPLIANCE FIELD TECHNICIAN) Sodium 138 136 - 145 mmol/L 05/05/2019 3:04 PM COMPLIANCE FIELD TECHNICIAN [facility] Potassium 4.2 3.5 - 5.1 mmol/L 05/05/2019 3:04 PM COMPLIANCE FIELD TECHNICIAN [facility] Chloride 103 98 - 109 mmol/L 05/05/2019 3:04 PM COMPLIANCE FIELD TECHNICIAN [facility] CO2 24 20 - 29 mmol/L 05/05/2019 3:04 PM COMPLIANCE FIELD TECHNICIAN [facility] Anion Gap 11 7 - 16 mmol/L 05/05/2019 3:04 PM COMPLIANCE FIELD TECHNICIAN [facility] Calcium 9.5 8.4 - 10.4 mg/dL 05/05/2019 3:04 PM COMPLIANCE FIELD TECHNICIAN [facility] BUN 14 7 - 26 mg/dL 05/05/2019 3:04 PM COMPLIANCE FIELD TECHNICIAN [facility] Creatinine 0.75 0.55 - 1.02 mg/dL 05/05/2019 3:04 PM COMPLIANCE FIELD TECHNICIAN [facility] GFR, Estimated >60 >60 mL/min/1.7 3m2 05/05/2019 3:04 PM COMPLIANCE FIELD TECHNICIAN [facility] GFR, Est If >60 >60 mL/min/1.7 3m2 05/05/2019 3:04 PM COMPLIANCE FIELD TECHNICIAN [facility] Alkaline Phosphatase 67 40 - 150 U/L 05/05/2019 3:04 PM COMPLIANCE FIELD TECHNICIAN [facility] AST (SGOT) 27 10 - 40 U/L 05/05/2019 3:04 PM COMPLIANCE FIELD TECHNICIAN [facility] ALT (SGPT) 24 0 - 55 U/L 05/05/2019 3:04 PM COMPLIANCE FIELD TECHNICIAN [facility] Bilirubin, Total 0.6 0.2 - 1.2 mg/dL 05/05/2019 3:04 PM COMPLIANCE FIELD TECHNICIAN [facility] Protein, Total 8.0 6.4 - 8.3 g/dL 05/05/2019 3:04 PM COMPLIANCE FIELD TECHNICIAN [facility] Albumin 4.3 3.5 - 5.0 g/dL 05/05/2019 3:04 PM COMPLIANCE FIELD TECHNICIAN [facility] Glucose 73 70 - 100 mg/dL 05/05/2019 3:04 PM COMPLIANCE FIELD TECHNICIAN [facility] Comment:The given reference range is for the fasting state. Non-fasting reference range for glucose is 70 - 180 mg/dL. Hours Fasting Unknown 05/05/2019 3:04 PM COMPLIANCE FIELD TECHNICIAN [facility] Blood Venipuncture / Unknown 05/05/2019 6:38 AM COMPLIANCE FIELD TECHNICIAN 05/05/2019 2:31 PM COMPLIANCE FIELD TECHNICIAN Patricia Olson MD LAB_1 [facility] [address] documented in this encounter Visit Diagnoses Diagnosis Avoidant/restrictive food intake disorder documented in this encounter Care Teams Nylon Winder Relationship Specialty Start Date End Date Jessica Chicas PA-C [address] [place] [address] PCP - General Physician Pot Pusher 04/27/19 documented as of this encounter
--- OUTSIDE RECORDS SUMMARY | 2023-05-26 11:57 | XMS_ITS | Encounter Summary ---
Author Name Unknown Organization [facility] Address [facility] [place] [address] Care Team Providers Care Industrial Security Analyst Name Role Phone No Ref-Primary, Physician Primary Care Provider Encounter Details Date Type Department Care Team (Latest Contact Info) Description 05/19/2023 Travel Social History Tobacco Use Types Packs/Day Years Used Date Smoking Tobacco: Light Smoker Cigarettes Smokeless Tobacco: Never Alcohol Use Standard Drinks/Week Comments Yes 0 (1 standard drink = 0.6 oz pur e alcohol) Adolescent Education Answer Date Record ed Getting School Help Needed Not on file 02/21 Comments Yes Sex and Gender Information Value Date Recorded Sex Assigned at Not on file Gender Identity Not on file Sexual Orientation Not on file documented as of this encounter Plan of Treatment Not on file documented as of this encounter Visit Diagnoses Not on filedocumented in this encounter Care Teams Industrial Security Analyst Relationship Specialty Start Date End Date No Ref-Primary, Physician PCP - General 02/28/23 documented as of this encounter
--- OUTSIDE RECORDS SUMMARY | 2023-05-26 11:57 | XMS_ITS | Patient Health Record ---
Author Name Unknown Organization [facility] Address [facility] [facility] [address] [place] [address] Care Team Providers Care Perfume And Toilet Water Maker Name Role Phone EVELIN, ROXANNACECELIA Primary Care Provider Allergies Allergen (clinical drug ingredient) Drug/Non Drug Allergy documented on EMR Reaction Allergy Type Onset Date Status doxycycline Doxycycline hives Drug Allergy Act german Penicillin rash Drug Allergy Active Results Component Value Reference Range Notes CHLAMYDIA/N. GONORRHOEAE RNA , TMA, UROGENITAL (74815) Reviewed date:06/04/2022 10:21:42 AM Interpretation: Performing Lab:[place], [facility], [place] Mitchell Goodwin Notes/Report: NON-FASTING CHLAMYDIA TRACHOMATIS RNA, TMA, UROGENITAL DETECTED NOT DETECTED If results do not correlate with clinical findings, testing using an alternate molecular target which amplifies different genetic sequences can be performed on the same sample for result confirmation within 7 days of sample receipt or per performing laboratory specimen retention policy. Alternate target testing is available; 09404 (C. trachomatis) [place] [address] (N. gonorrhoeae). NEISSERIA GONORRHOEAE RNA, TMA, UROGENITAL NOT DETECTED NOT DETECTED RPR (DX) W/REFL TITER AND CO NFIRMATORY TESTING (02293) Reviewed date:06/04/2022 10:21:42 AM Interpretation: Performing Lab:[place], [facility] [address] Mitchell Goodwin Notes/Report: NON-FASTING NON-FASTING NON-FASTING NON-FASTING RPR (DX) W/REFL TITER AND CONFIRMATORY TESTING NON-REACTIVE NON-REACTIVE NO COLLECTION DATE RECEIVED. WE HAVE USED THE DATE THE SPECIMEN WAS RECEIVED BY THIS LABORATORY THE COLLECTION DATE. IF THIS IS INCORRECT, PLEASE CONTACT CLIENT SERVICES. PHONE NUMBER: [phone] URINALYSIS, COMPLETE W/REFLE X TO CULTURE (7955) Reviewed date:06/04/2022 10:21:42 AM Interpretation: Performing Lab:[facility] [id number], [place]paf[place]Q[address] Mitchell Goodwin Notes/Report: NON-FASTING NON-FASTING NON-FASTING NON-FASTING [...] SEEN /LPF SURESWAB(R) ADVANCED VAGINIT IS, TMA (85281) Reviewed date:06/04/2022 10:21:42 AM Interpretation: Performing Lab:[facility], [place] Mitchell Goodwin Notes/Report: NON-FASTING NON-FASTING NON-FASTING NON-FASTING SURESWAB(R) ADV BACTERIAL VAGINOSIS (BV), TMA POSITIVE NEGATIVE LINA SPECIES NOT DETECTED NOT DETECTED LINA GLABRATA NOT DETECTED NOT DETECTED Lina species C. albicans, C. tropicalis, C. parapsilosis, and/or C. dubliniensis can be detected, but not differentiated, in the Lina spp. result. TRICHOMONAS VAGINALIS (TV), TMA NOT DETECTED NOT DETECTED HIV 1/2 ANTIGEN/ANTIBODY,FOU RTH GENERATION W/RFL (35961) Reviewed date:06/04/2022 10:21:42 AM Interpretation: Performing Lab:[facility] [address], [place] HospitalTvnaIF[address] Mitchell Goodwin Notes/Report: NON-FASTING NON-FASTING NON-FASTING NON-FASTING [...] purpose. 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) Active confirmed Problem Vitamin D deficiency (26833174) Vitamin D deficiency (E55.9) Active confirmed Problem Vitamin D deficiency (12744136) Vitamin D insufficiency (E55.9) Active confirmed Problem Generalized anxiety disorder (20791370) FANNY (generalized anxiety disorder) (F41.1) Active confirmed Problem History of alcohol abuse (489386236) History of alcohol abuse (F10.11) Active confirmed Problem Suicidal ideation (1138263) Suicidal ideation (R45.851) Active confirmed Problem Abuse of antidepressant drug (188072711) Substance use disorder (F19.90) Active confirmed Problem Cannabis dependence (70795549) Cannabis use disorder, moderate, dependence (F12.20) Active confirmed Problem Alcohol abuse (51612577) Alcohol use disorder, mild, abuse (F10.10) Active confirmed Problem Ferritin level low (033641836) Low ferritin (R79.0) Active confirmed Problem Adjustment disorder (26369891) 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) Active confirmed Problem Parent-child problem (06019180) Parent-child relational problem (Z62.820) Active confirmed Problem Severe recurrent major depression without psychotic features (07626415) Major depressive disorder, recurrent, 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) Active confirmed Problem Recurrent major depression (53351303) Episode of recurrent major depressive disorder (F33.9) Active confirmed Problem Cannabis abuse (76157282) Cannabis use disorder, mild, abuse (F12.10) Active confirmed Problem Avoidant restrictive food intake disorder (disorder) (664300003) 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) [...] 06/01/2022 Encounters Encounter Location Date Provider Diagnosis [facility] [address] [place] [address] 06/01/2022 TAMRA WATERS STI (sexually transmitted infection) A64 ; Vaginal candidiasis B37.31 ; Dysuria R30.0 ; Screening for HIV (human immunodeficiency virus) Z11.4 and Acute vaginitis N76.[address] [address] 06/04/2022 TAMRA WATERS Assessments Encounter Date Diagnosis [...] Insured Coverage Start Date Coverage End Date [facility] [address] [address] [place], [place] [id number] Jessie Bolden Self - patient is the [...]
--- OUTSIDE RECORDS SUMMARY | 2023-05-26 11:57 | XMS_ITS | Encounter Summary ---
Author Name Unknown Organization [place] Address [facility] [place] [address] Care Team Providers Care Dairy Technician Name Role Phone No Ref-Primary, Physician Primary Care Provider Encounter Details Date Type Department Care Team (Latest Contact Info) Description 02/28/2023 Travel Social History Tobacco Use Types Packs/Day Years Used Date Smoking Tobacco: Light Smoker Cigarettes Smokeless Tobacco: Never Alcohol Use Standard Drinks/Week Comments Yes 0 (1 standard drink = 0.6 oz pur e alcohol) Adolescent Education Answer Date Record ed Getting School Help Needed Not on file 02/21 Sex and Gender Information Value Date Recorded Sex Assigned at Not on file Gender Identity Not on file Sexual Orientation Not on file documented as of this encounter Plan of Treatment Not on file documented as of this encounter Visit Diagnoses Not on filedocumented in this encounter Care Teams Dairy Technician Relationship Specialty Start Date End Date No Ref-Primary, Physician PCP - General 02/28/23 documented as of this encounter
--- OUTSIDE RECORDS SUMMARY | 2023-05-26 11:57 | XMS_ITS | Encounter Summary ---
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 A inbound sales representative will call you within 2 business days to help you schedule your appointment, or you may contact the Human Resources Office Manager Commission Auditor at: . Comments Please be aware that coverage of these services is subject to the terms and limitations of your health insurance plan. Call member services at your health plan with any benefit or coverage questions. [facility] Human Resources Office Manager will call you to coordinate your care as prescribed by your provider. A inbound sales representative will call you within 2 business days to help you schedule your appointment, or you may contact the Human Resources Office Manager Commission Auditor at: . 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, initial encounter Discharge Disposition: Home or Self Care Social History Tobacco Use Types Packs/Day Years [...] on file documented as of this encounter Last Filed Vital Signs Vital Sign Reading Time Taken Comments Blood Pressure 111/66 02/28/2023 1:19 PM CDT Pulse 94 02/28/2023 1:19 PM CDT Temperature 36.9 ??C (98.5 ??F) 02/28/2023 1:19 PM CD T Respiratory Rate 16 02/28/2023 1:19 PM CDT Oxygen Saturation 100% 02/28/2023 1:19 PM CDT Inhaled Oxygen Concentration - - Weight 52.2 kg (115 lb 1.3 oz) 02/28/2023 1:19 P M CDT Height - - Body Mass Index 18.16 08/11/2017 1:00 PM CDT documented in this encounter Discharge Instructions * Discharge Instructions* Sunita Packer MD - 02/28/2023 2:00 PM CDT Your exam demonstrates an ulnar nerve injury. The puncture wound you sustained 11 days ago is precisely where the ulnar nerve divides and provide sensation to the ring finger and small finger. I suspect you have referred pain given that the pain radiates up into your wrist. There is not anything wecan do in the emergency department to help repair this at this time. I recommend following up with orthopedics. I suspect that injury will take several months to heal, if it does. Return to the ED right away for worsening symptoms, including pain, weakness, redness, swelling, or discharge from the wound. documented in this encounter Medications at Time of Discharge Medication Sig Dispensed Refills Start Date End Date cholecalciferol 4000 UNITS TABSIndications:Vitami n D deficiency Take 4,000 Units by mouth daily 30 tablet 0 08/17/2017 ferrous sulfate (IRON) 325 (65 FE) MG tabletIndications:Low ferritin Take 1 tablet (325 mg) by mouth daily (with breakfast) 30 tablet 0 08/16/2017 fluconazole (DIFLUCAN) 150 MG tabletIndications:Yeas t vaginitis Take one now then repeat in 4 days. 2 tablet 0 08/16/2021 levonorgestrel (MIRENA) 20 MCG/24HR IUD 1 each by Intrauterine route 0 melatonin 3 MG tabletIndications:Maine r depressive disorder, recurrent, severe without psychotic features (H),Generalized anxiety disorder,Trauma and stressor-related disorder Take 1 tablet (3 mg) by mouth nightly as needed 0 08/16/2017 mirtazapine (REMERON) 7.5 MG TABS tabletIndications:[place]aine r depressive disorder, recurrent, severe without psychotic features (H),Generalized anxiety disorder,Trauma and stressor-related disorder Take 1 tablet (7.5 mg) by mouth At Bedtime 30 tablet 0 08/16/2017 QUEtiapine (SEROQUEL) 25 MG tablet Take 25 mg by mouth 0 07/10/2021 documented as of this encounter ED Notes * Annabelle Gerber, RN - 02/28/2023 1:21 PM CDT Pt presents for right palm suture removal. Cut her right hand on accident with a kitchen knife a week ago. Pt reports intermittent episodes of right pinky and ring finger numbness. Feels shocks in right hand. Incision C/D/I. No signs of infection. Two sutures present. A&OX4. Triage Assessment (Adult) Row Name 02/28/23 1321 Triage Assessment Airway WDL WDL Respiratory WDL Respiratory WDL WDL Skin Circulation/Temperature WDL Skin Circulation/Temperature WDL WDL Cardiac WDL Cardiac WDL WDL Peripheral/Neurovascular WDL Peripheral Neurovascular WDL WDL Cognitive/Neuro/Behavioral WDL Cognitive/Neuro/Behavioral WDL WDL * Sunita Packer MD - 02/28/2023 1:06 PM CDT History Chief Complaint: Suture Removal and Numbness HPI Jessie Márquez is a right-handed 22 year old female who presents with left hand numbness and a suture removal. Patient reports that she was washing dishes on 02/17 when she accidentally cut her hand with a knife, resulting in a laceration to the palmar aspect of her right hand. She was seen and had stitches placed on the same day, but presents today due to feeling shockwaves of painin her right hand, which radiates to her fingers and wrist. She does endorse some numbness intermittently to her hand, but denies any weakness. She did have x-rays done of the hand at the time of theinjury, which came back negative (see below). Independent Historian: None - Patient Only Review of External Notes: EXAM: XR HAND 3 VIEWS RIGHT IMPRESSION: Anatomic alignment. No acute displaced fracture. No significant joint space narrowing. No localizing soft tissue swelling. Medications: Flucanazole Mirena IUD Remeron Seroquel Past Medical History: Anxiety Depression Substance use disorder Physical Exam Patient Vitals for the past 24 hrs: BP Temp Temp src Pulse Resp SpO2 Weight 02/28/23 1319 111/66 98.5 ??F (36.9 ??C) Oral 94 16 100 % 52.2 kg (115 lb 1.3 oz) Physical Exam Gen: Pleasant, appears stated age. Eye: Sclera non-injected. Extremity Exam: Full AROM of all joints without pain except the following: R UE Inspection: healed laceration over the hypothenar eminence of the palm Palpation: non tender. ROM: Full flexion and extension at wrist, 4th and 5th MCP, PIP and DIP joints. Strength: thumb strength, gaming cage worker strength, okay sign, finger abduction, finger adduction, wrist flexion and wrist extension 5/5 Sensation: median, radial, fine touch sensation intact; decreased fine touch in ulnar distribution of 5th and lateral 4th digits. Distal Pulses: intact radial, CR < 2 seconds Neurologic: Non-focal exam without asymmetric weakness or numbness. Fluent speech. Psychiatric: Normal affect with appropriate interaction with examiner. Emergency Department Course Emergency Department Course & Assessments: Interventions: 2 sutures removed without difficulty. Independent Interpretation (X-rays, CTs, rhythm strip): N/A Assessments/Consultations/Discussion of Management or Tests: ED Course as of 02/28/23 1400 Sun Feb 28, [address] Salomon' evaluation Social Determinants of Health affecting care: None Disposition: The patient was discharged to home. Impression & Plan Medical Decision Making: Jessie Márquez is a 22 year old female, [id number], who is presents 11 days following a puncture wound to the right hand. The wound was repaired following negative x-rays. Tetanus was updated at that time. The wound appears to be healing well, and sutures were removed as above. Unfortunately, she does seem to have sustained an ulnar nerve injury secondary to the puncture wound. There are is nothing that can be done in an emergency department setting to help repair the nerve at this point. I recommended outpatient follow-up with orthopedics. The patient does not have any motor weakness, only sensory deficits. I do not think splinting is indicated. I counseled her that the nerve may heal, though it will take quite a long time as an several months to know if that is possible. Return to the ED for pain, swelling, redness, weakness, or other concerns. Diagnosis: ICD-10-CM 1. Laceration of right hand without foreign body, initial encounter S61.411A 2. 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
--- OUTSIDE RECORDS SUMMARY | 2023-05-26 11:57 | XMS_ITS | Encounter Summary ---
Author Name Unknown Organization [place] Address [address] [place] [address] Care Team Providers Care Head Waiter/Waitress Name Role Phone Bacilio Whipple MD Primary Care Provider [phone] No Ref-Primary, Physician Primary Care Provider Reason for Visit * Reason Onset Date Comments MH/CD Inpatient 08/11/2017 Encounter Details Date Type Department Care Team ([facility] st Contact Info) Description 08/11/2017 Telephone [facility] Intake [address] [place] [address] Generic, Behavioral Intake, MD MH/CD Inpatient Social History Tobacco Use Types Packs/Day Years Used Date Smoking Tobacco: Never Assessed Sex and Gender Information Value Date Recorded Sex Assigned at Not on file Gender Identity Not on file Sexual Orientation Not on file documented as of this encounter Miscellaneous Notes * Telephone Encounter - Angie Sanders RN - 08/11/2017 11:40 AM CDT R: Pt more appropriate for 6A - accepted by Dr. Lucia Parry RN on 7A and 6A are aware. * Telephone Encounter - Anige Sanders RN - 08/11/2017 8:38 AM CDT S: Clinical from [facility] B: 17 y/o female who has stopped taking her depression medications, ran away from home and was [place] and reports having dark thoughts. She has hx of cutting and had stopped for 1 month but started cutting again yesterday. Per mom pt is not eating, pulling her hair out, not doing her school work, and having poor sleep. No HI/aggression/hallucinations. Utox+ for THC. Nomedical conditions A: Voluntary- Mom is Radha ([phone]) R: Accepted to [facility] Called Unit and provided to RN - faxed clinical to unit at 0945 Called and notified ED - advised them to complete nurse to nurse prior to setting up transport documented in this encounter Plan of Treatment Not on file documented as of this encounter Visit Diagnoses Not on filedocumented in this encounter Care Teams Head Waiter/Waitress Relationship Specialty Start Date End Date Bacilio Whipple MD [facility] [address] [place] [address] PCP - General Family Practice 08/11/17 02/27/23 No Ref-Primary, Physician PCP - General 02/28/23 documented as of this encounter
--- OUTSIDE RECORDS SUMMARY | 2023-05-26 11:57 | XMS_ITS | Referral Summary ---
Author Name Unknown Organization [place] Address [facility] [place] [address] Care Team Providers Care Survey Technician Name Role Phone No Ref-Primary, Physician Primary Care Provider Encounters Date Type Department Care Team Description 05/19/2023 Travel 05/19/2023 12:39 PM INCINERATOR OPERATOR - 05/19/2023 2:50 PM INCINERATOR OPERATOR Emergency [facility] Emergency Dept [address] [place] [address] Laurence Hernandez MD Discharge Disposition: Left Without Being Seen 02/28/2023 Travel 02/28/2023 1:39 PM CDT - 02/28/2023 2:03 PM CDT Emergency [facility] Emergency Dept [address] [place] [address] Sunita Packer MD Laceration of right hand without foreign body, initial encounter; 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, initial encounter Discharge Disposition: Home or Self Care from Last 3 Months Allergies Active Allergy Reactions Criticality Noted Date Comments Cats Other (See Comments) 08/11/2017 Rhinitis, itchy eyes Penicillins Hives 08/11/2017 Medications Medication Sig Dispensed Refills Start Date End Date Status melatonin 3 MG tabletIndications: Major depressive disorder, recurrent, severe without psychotic features (H),Generalized anxiety disorder,Trauma and stressor-related disorder Take 1 tablet (3 mg) by mouth nightly as needed 0 08/16/2017 Active Additional Information Patient not taking.Reported on 08/16/2021 mirtazapine (REMERON) 7.5 MG TABS tabletIndications: Major depressive disorder, recurrent, severe without psychotic features (H),Generalized anxiety disorder,Trauma and stressor-related disorder Take 1 tablet (7.5 mg) by mouth At Bedtime 30 tablet 0 08/16/2017 Active Additional Information Patient not taking.Reported on 08/16/2021 ferrous sulfate (IRON) 325 (65 FE) MG tabletIndications: Low ferritin Take 1 tablet (325 mg) by mouth daily (with breakfast) 30 tablet 0 08/16/2017 Active Additional Information Patient not taking.Reported on 08/16/2021 cholecalciferol 4000 UNITS TABSIndications:Vi tamin D deficiency Take 4,000 Units by mouth daily 30 tablet 0 08/17/2017 Active Additional Information Patient not taking.Reported on 08/16/2021 QUEtiapine (SEROQUEL) 25 MG tablet Take 25 mg by mouth 0 07/10/2021 Activ e levonorgestrel (MIRENA) 20 MCG/24HR IUD 1 each by Intrauterine route 0 Active fluconazole (DIFLUCAN) 150 MG tabletIndications: Yeast vaginitis Take one now then repeat in 4 days. 2 tablet 0 08/16/2021 Active Active Problems Problem Noted Date Diagnosed Date Alcohol use disorder, mild 08/12/2017 Low ferritin 08/12/2017 Vitamin D deficiency 08/12/2017 Suicidal ideation 08/11/2017 Major depressive disorder, r ecurrent, severe without psychotic features 08/11/2017 Generalized anxiety disorder 08/11/2017 Parent-child relational problem 08/11/2017 Unspecified trauma- and stressor-related disorde r 08/11/2017 Cannabis use disorder, moderate 08/11/2017 Trichotillomania 08/11/2017 Substance use disorder 08/11/2017 Comments Yes Immunizations Name Administration Dates Next Due HepA, Unspecified 12/14/2013 HepB, Unspecified 11/29/2003,07/23/2003,05/23/19 04 Historical DTP/aP 08/22/2008, 5,11/29/2003,2003,07/23/2003 Hpv, Unspecified 12/14/2013 MMR 08/22/2008,09/01/2004 Meningococcal,unspecified 12/14/2013 Polio, Unspecified 08/22/2008, 4,09/26/2003,2003 Tdap (Adult) Unspecified Formulation 12/14/2013 Varicella 08/22/2008,06/18/2004 Social History Tobacco Use Types Packs/Day Years [...] Sign Reading Time Taken Comments Blood Pressure 110/73 05/19/2023 11:43 AM INCINERATOR OPERATOR Pulse 99 05/19/2023 11:43 AM INCINERATOR OPERATOR Temperature 37.1 ??C (98.8 ??F) 05/19/2023 11:[address] Respiratory Rate 16 05/19/2023 11:43 AM INCINERATOR OPERATOR Oxygen Saturation 100% 05/19/2023 11:43 AM INCINERATOR OPERATOR Inhaled Oxygen Concentration - - Weight 52.2 kg (115 lb 1.3 oz) 02/28/2023 1:19 P M CDT Height 169.5 cm (5' 6.75) 08/11/2017 1:00 PM CD T Body Mass Index 18.16 08/11/2017 1:00 PM CDT Plan of Treatment Not on file Advance Directives For more information, please contact: [phone] Latest Code Status on File Code Status Date Activated Date Inactivated Comments Full Code 08/11/2017 1:56 PM 08/16/2017 7:43 PM Care Teams Survey Technician Relationship Specialty Start Date End Date No Ref-Primary, Physician PCP - General 02/28/23
--- OUTSIDE RECORDS SUMMARY | 2023-05-26 11:57 | XMS_ITS | Encounter Summary ---
Author Name Unknown Organization [facility] Address [address] [place] [address] Care Team Providers Care Appliance Counselor Name Role Phone eJssica Chicas PA-C Primary Care Provider [phone] Encounter Details Date Type Department Care Team Description 05/02/2019 Lab Requisition [facility] [address] [place], [place] [id number] Sunshine Schmidt PA-C [address] [place] [address] Avoidant/restrictive food intake disorder Discharge Disposition: Home [...] Department Care Team Description 05/28/2023 7:30 AM ART INSTRUCTOR [facility]ment [facility] [address] [place] [address] Daniela Greenwood, RUSSELL, CNM [address] [place], [place] [address] 06/23/2023 11:15 AM ART INSTRUCTOR Appointment [facility] [address] [facility] [place], [address] [place] [address] [place] [address] [facility] [address] [place], [place] [id number] documented as of this encounter Procedures Procedure Name Priority Date/Time Associated Diagnosis Comments BASIC METABOLIC PANEL Routine 05/02/2019 8:45 PM ART INSTRUCTOR Avoidant/restrictiv e food intake disorder documented in this encounter Results * Basic Metabolic Panel (05/02/2019 8:45 PM ART INSTRUCTOR) Sodium 136 136 - 145 mmol/L 05/02/2019 9:57 PM ART INSTRUCTOR [facility] Potassium 3.9 3.5 - 5.1 mmol/L 05/02/2019 9:57 PM ART INSTRUCTOR [facility] Chloride 101 98 - 109 mmol/L 05/02/2019 9:57 PM ART INSTRUCTOR [facility] CO2 28 20 - 29 mmol/L 05/02/2019 9:57 PM ART INSTRUCTOR [facility] Anion Gap 7 7 - 16 mmol/L 05/02/2019 9:57 PM ART INSTRUCTOR [facility] Calcium 9.5 8.4 - 10.4 mg/dL 05/02/2019 9:57 PM ART INSTRUCTOR [facility] BUN 11 7 - 26 mg/dL 05/02/2019 9:57 PM ART INSTRUCTOR [facility] Creatinine 0.56 0.55 - 1.02 mg/dL 05/02/2019 9:57 PM ART INSTRUCTOR [facility] GFR, Estimated >60 >60 mL/min/1.7 3m2 05/02/2019 9:57 PM ART INSTRUCTOR [facility] GFR, Est If >60 >60 mL/min/1.7 3m2 05/02/2019 9:57 PM ART INSTRUCTOR [facility] Glucose 90 70 - 100 mg/dL 05/02/2019 9:57 PM ART INSTRUCTOR [facility] Comment:The given reference range is for the fasting state. Non-fasting reference range for glucose is 70 - 180 mg/dL. Hours Fasting Unknown 05/02/2019 9:57 PM ART INSTRUCTOR [facility] Blood Venipuncture / Unknown 05/02/2019 8:45 PM ART INSTRUCTOR 05/02/2019 9:23 PM ART INSTRUCTOR Sunshine Schmidt PA-C [facility] [address] documented in this encounter Visit Diagnoses Diagnosis Avoidant/restrictive food intake disorder documented in this encounter Care Teams Appliance Counselor Relationship Specialty Start Date End Date Jessica Chicas PA-C [address] [place] [address] PCP - General Physician Head Grease Maker 04/27/19 documented as of this encounter
--- OUTSIDE RECORDS SUMMARY | 2023-05-26 11:57 | XMS_ITS | Encounter Summary ---
Author Name Unknown Organization [facility] Address [facility] [place] [address] Care Team Providers Care Community Organization Worker Name Role Phone No Ref-Primary, Physician Primary Care Provider Reason for Visit * Reason Comments Vaginal Bleeding - Encounter Details Date Type Department Care Team (Late st Contact Info) Description 05/19/2023 12:39 PM [place] [facility] - 05/19/2023 2:50 PM [place] [facility] Emergency [facility] [address] [place] [id number] [phone] Laurence Hernandez MD [facility] [address] [place], [place] [id number] Discharge Disposition: Left Without Being Seen Social History Tobacco Use Types Packs/Day Years [...] Comments Blood Pressure 110/73 05/19/2023 11:43 AM [place] SE[place] Pulse 99 05/19/2023 11:43 AM [place] [facility] Temperature 37.1 ??C (98.8 ??F) 05/19/2023 11:[address] Respiratory Rate 16 05/19/2023 11:43 AM [place] [facility] Oxygen Saturation 100% 05/19/2023 11:43 AM [place] [facility] Inhaled Oxygen Concentration - - Weight - - Height - - Body Mass Index - - documented in this encounter Medications at Time [...] as of this encounter ED Notes * Norah De Souza RN - 05/19/2023 11:47 AM CST Patient arrives with complaints of cramping and vaginal bleeding. Approximately 8 weeks . ABCs intact in triage. [facility] SEAMER documented in this encounter Plan of Treatment Not on file documented as of this encounter Visit Diagnoses Not on filedocumented in this encounter Care Teams Community Organization Worker Relationship Specialty Start Date End Date No Ref-Primary, Physician PCP - General 02/28/23 documented as of this encounter
--- OUTSIDE RECORDS SUMMARY | 2023-05-26 11:57 | XMS_ITS | Clinical Summary ---
Author Name Unknown Organization [facility] Address [address] [place] [address] Care Team Providers Care Pediatric Cns Name Role Phone No Ref-Primary, Physician Primary Care Provider Allergies Active Allergy Reactions [...] 08/11/2017 Substance use disorder 08/11/2017 Comments Yes Encounters Date Type Department Care Team Description 05/19/2023 12:39 PM ZINC SKIMMER - 05/19/2023 2:50 PM ZINC SKIMMER Emergency [facility] Emergency Dept [address] [place] [address] Laurence Hernandez MD Discharge Disposition: Left Without Being Seen 05/19/2023 Travel 02/28/2023 1:39 PM CDT - 02/28/2023 2:03 PM CDT Emergency [facility] Emergency Dept [address] [place] [address] Sunita Packer MD Laceration of right hand without foreign body, initial encounter; 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, initial encounter Discharge Disposition: Home or Self Care 02/28/2023 Travel from Last 3 Months Immunizations Name Administration Dates Next Due HepA, Unspecified 12/14/2013 HepB, Unspecified 11/29/2003,07/23/2003,05/23/19 04 Historical DTP/aP 08/22/2008, 5,11/29/2003,2003,07/23/2003 Hpv, Unspecified 12/14/2013 MMR 08/22/2008,09/01/2004 Meningococcal,unspecified 12/14/2013 Polio, Unspecified 08/22/2008, 4,09/26/2003,2003 Tdap (Adult) Unspecified Formulation 12/14/2013 Varicella 08/22/2008,06/18/2004 Family History Medical History Relation Comments Diabetes Maternal Aunt Diabetes Maternal Grandmother Cancer Other maternal history of cervical cancer, cancer on paternal side as well Relation Status Comments Maternal Aunt Maternal Grandmother Other Social History Tobacco Use Types Packs/Day Years [...] Comments Blood Pressure 110/73 05/19/2023 11:43 AM ZINC SKIMMER Pulse 99 05/19/2023 11:43 AM ZINC SKIMMER Temperature 37.1 ??C (98.8 ??F) 05/19/2023 11:[address] Respiratory Rate 16 05/19/2023 11:43 AM ZINC SKIMMER Oxygen Saturation 100% 05/19/2023 11:43 AM ZINC SKIMMER Inhaled Oxygen Concentration - - Weight 52.2 kg (115 lb 1.3 oz) 02/28/2023 1:19 P M CDT Height 169.5 cm (5' 6.75) 08/11/2017 1:00 PM CD T Body Mass Index 18.16 08/11/2017 1:00 PM CDT Plan of Treatment Health Maintenance Due Date Last Done Comments ADVANCE CARE PLANNING 2001 ANNUAL REVIEW OF HM ORDERS 2001 DEPRESSION ACTION PLAN 2001 NICOTINE/TOBACCO CESSATION COUNSELING Q 1 YR 2001 PHQ-9 2001 YEARLY PREVENTIVE VISIT 2001 Pneumococcal Vaccine: Pediatrics (0 to 5 Years) and At-Risk Patients (6 to 64 Years) (1 of 1 - PPSV23 or PCV20) 2007 11/24/2002, 11/24/2002, 2001, Additional history exists CHLAMYDIA SCREENING 08/16/2022 08/16/2021, 08/11/2017, 08/11/2017 COVID-19 Vaccine ( season) 2023 12/20/2020, 11/19/2020 INFLUENZA VACCINE (#1) 2023 7, 04/12/2015, 03/13/2010, Additional history exists PAP 08/10/2023 08/09/2020, 08/09/2020 DTAP/TDAP/TD IMMUNIZATION (9 - Td or Tdap) 02/17/2033 02/17/2023, 12/14/2013, 12/14/2013, Additional history exists RSV VACCINE ( & 60+) (1 - 1-dose 60+ series) 2061 HEPATITIS B IMMUNIZATION Completed 007, 11/29/2003, 07/23/2003, Additional history exists IPV IMMUNIZATION Completed 08/22/2008, , 11/29/2003, Additional history exists HPV IMMUNIZATION Completed 06/18/2014, 05/2013, 12/14/2013, Additional history exists MENINGITIS IMMUNIZATION Completed 12/24/19 19, 12/14/2013, 12/14/2013 HEPATITIS C SCREENING Completed 08/16/2021 HIV SCREENING Completed 08/16/2021, 08/12/2017 RSV MONOCLONAL ANTIBODY Aged Out No l onger eligible based on patient's age to complete this topic Advance Directives For more information, please contact: [phone] Latest Code Status on File Code Status Date Activated Date Inactivated Comments Full Code 08/11/2017 1:56 PM 08/16/2017 7:43 PM Care Teams Pediatric Cns Relationship Specialty Start Date End Date No Ref-Primary, Physician PCP - General 02/28/23
== END 2023-05-20 09:45 | disposition home or self-care (01) ==
LOC: NFLDREF 05-26 11:55
PROVIDERS: PCP Physician Assistant Medical; Referring Provider Physician Assistant Medical; Visit Provider Advanced Practice Midwife
DX: O02.1 Missed abortion (principal)
CPT/HCPCS: 84702

== ENCOUNTER 2024-08-30 18:14 | Outpatient (CLI) | payer BC, SELFPAY | END 2024-08-30 18:15 | disposition home or self-care (01) | LOC: NFLDREF 09-03 13:22 | PROVIDERS: PCP Family Medicine; Referring Provider Family Medicine; Visit Provider Physician Assistant | DX: Z11.3 Encounter for screening for infections with a predominantly sexual mode of transmission (principal) | CPT/HCPCS: 87491; 87591 ==

== ENCOUNTER 2024-10-10 16:57 | Outpatient (CLI) | payer BC, SELFPAY ==
[2024-10-10 23:07] LABS: Chlamydia DNA Amplified* NOT DETECTED (No Detected); GC DNA Amplified* NOT DETECTED (No Detected)
== END 2024-10-10 16:58 | disposition home or self-care (01) ==
PROVIDERS: PCP Family Medicine; Visit Provider Nurse Practitioner Family
DX: N89.8 Other specified noninflammatory disorders of vagina (principal); Z11.3 Encounter for screening for infections with a predominantly sexual mode of transmission; Z11.59 Encounter for screening for other viral diseases; Z11.4 Encounter for screening for human immunodeficiency virus [HIV]
CPT/HCPCS: 86592; 86703; 86706; 86803; 87340; 87491; 87591

== ENCOUNTER 2024-11-13 09:48 | Outpatient (CLI) | payer BC, SELFPAY ==
[2024-11-13 15:58] LABS: Chlamydia DNA Amplified* NOT DETECTED (No Detected); GC DNA Amplified* NOT DETECTED (No Detected)
== END 2024-11-13 09:49 | disposition home or self-care (01) ==
PROVIDERS: PCP Family Medicine; Visit Provider Physician Assistant
DX: Z11.3 Encounter for screening for infections with a predominantly sexual mode of transmission (principal); Z11.4 Encounter for screening for human immunodeficiency virus [HIV]
CPT/HCPCS: 86592; 86703; 86803; 87340; 87491; 87591